=== PATIENT | male | born 1955 | race Caucasian/White ===

== ENCOUNTER 2020-08-17 14:32 | Inpatient (IN) | payer MEDICARE, OTHER ==
[~2020-08-17] VITALS: Ht 182.9 cm; Wt 63.0 kg
[2020-08-17] MEDS ORDERED: IV NS 0.9% 1,000 ML BAG IV ONE (15:00)
[2020-08-17 15:43] LABS: BASOPHILS % (AUTO) 0.4 % (0.0-2.0); EOSINOPHILS % (AUTO) 0.1 % (0.0-6.0); HEMATOCRIT 36 % (39-51); HEMOGLOBIN 11.6 g/dL (13.5-17.5); LYMPHOCYTES # (AUTO) 0.5 /CMM (0.8-4.8); LYMPHOCYTES % (AUTO) 5.6 % (20.0-44.0); MEAN CORPUSCULAR HGB CONC 33 g/dl (31.0-36.0); MEAN CORPUSCULAR VOLUME 87 fL (80-96); MONOCYTES # (AUTO) 0.6 /CMM (0.1-1.30); NEUTROPHILS # (AUTO) 8.1 /CMM (1.8-8.9); NEUTROPHILS % (AUTO) 86.9 % (43.0-81.0); PLATELET COUNT (AUTO) 186 /CMM (150-450); RED BLOOD CELL COUNT(AUTO) 4.11 MIL/uL (4.5-6.0); WHITE BLOOD COUNT (AUTO) 9.3 K/uL (4.3-11.0)
--- NOTE | 2020-08-17 15:54 | NUR ---
Pt has states "lives in a car was kicked out of board and care. Homeless protocol initiated
[2020-08-17 15:56] LABS: CALCIUM, SERUM 8.8 mg/dL (8.5-10.1); CREATININE 1.6 mg/dL (0.6-1.3); POTASSIUM 3.5 mmol/L (3.5-5.1)
[2020-08-17 16:09] LABS: ALBUMIN 3.3 g/dL (3.4-5.0); BILIRUBIN,TOTAL 0.6 mg/dL (0.2-1.0); TOTAL PROTEIN, SERUM 7.8 g/dL (6.4-8.2)
[2020-08-17] MEDS ORDERED: LOPERAMIDE HCL (2 MG CAP) 2 MG CAPSULE ONE (16:27)
[2020-08-17] MEDS ORDERED: ASPIRIN 325 MG TABLET ONE (16:27)
[2020-08-17] MEDS ORDERED: LOPERAMIDE HCL (2 MG CAP) 2 MG CAPSULE PO ONE (16:30)
[2020-08-17] MEDS ORDERED: ASPIRIN 325 MG TABLET PO ONE (16:30)
[2020-08-17 16:36] LABS: BILIRUBIN,URINE Negative (NEGATIVE); BLOOD, URINE Trace-lysed Ery/uL (NEGATIVE); COLOR,URINE YELLOW (YELLOW); LEUKOCYTE ESTERASE ,URINE Negative (NEGATIVE); NITRITE, URINE Negative (NEGATIVE); PH,URINE 8.5 (5.0-8.0); PROTEIN,URINE 30 mg/dl (NEGATIVE); UGLUCOSE Negative (NEGATIVE); UROBILINOGEN,URINE 0.2 EU/dL (0.2)
[2020-08-17] MEDS ORDERED: OXYC40TA50 PO (16:42)
[2020-08-17] MEDS ORDERED: HYDR-3980 PO (16:42)
[2020-08-17] MEDS ORDERED: LISI10TA5 PO (16:42)
[2020-08-17] MEDS ORDERED: CLON2TAB11 PO (16:42)
[2020-08-17 16:53] LABS: BACTERIA,URINE Rare /HPF (None Seen); SQUAMOUS EPITHELIAL CELL,UR Few /HPF (None Seen); WBC,URINE NONE SEEN /HPF (0-3)
--- NOTE | 2020-08-17 17:15 | NUR ---
Abdle to get out of bed- BRP +diarrhea
[2020-08-17] MEDS ORDERED: ACETAMINOPHEN 325 MG TABLET PO PRN (18:00)
[2020-08-17] MEDS ORDERED: ALBUTEROL SULFATE 8 GM HFA.AER.AD IH PRN (18:00)
--- NOTE | 2020-08-17 18:09 | NUR ---
Pt gets easily frustrated and agitated " I keep going to the bathroom Im going to shit on myself" declines to be undressed states "its so cold I dont want to" .
--- NOTE | 2020-08-17 18:51 | NUR ---
REPORT RECEIVED FROM JANA POP FOR CARMENZA
[2020-08-17] MEDS ORDERED: LORAZEPAM INJ 2 MG/ML VIAL ONE (19:09)
[2020-08-17] MEDS ORDERED: LORAZEPAM INJ 2 MG/ML VIAL IV ONE (19:30)
--- NOTE | 2020-08-17 19:50 | NUR ---
TELE 107
--- NOTE | 2020-08-17 19:58 | NUR ---
REPORT GIVEN TO JANA SENIOR FOR CARMENZA
--- NOTE | 2020-08-17 20:45 | NUR ---
"RN NOTE | ADMISSION RECEIVED PT FROM ER VIA [facility] ACCOMPANIED BY 2 ER STAFFS AND TRANSFERRED TO BED VIA 2 PERSON ASSIST. PT IS ALERT AND ORIENTED X4. PT ON 2L OF O2 VIA NC WITH RESPIRATIONS EVEN AND UNLABORED. COMPREHENSIVE PHYSICAL ASSESSMENT AND PATIENT CARE DONE. CALL LIGHT WITHIN REACH, SAFETY MEASURES AND ISOLATION PRECAUTION IN PLACE, WILL CONTINUE MONITOR AND ASSESS THROUGHOUT THE SHIFT. WILL CARRY OUT MD ORDERS ACCORDINGLY."
[2020-08-17] MEDS: IV NS 0.9% 1,000 ML IV PRN (20:54)
--- NOTE | 2020-08-17 20:59 | NUR ---
PT TRANSFERRED PER [facility]S PR[employer]
[2020-08-17] MEDS ORDERED: CEFEPIME 1 GM in IV D5W 50 ML IV SCH (21:00)
--- NOTE | 2020-08-17 22:00 | NUR ---
RN NOTES PATIENT REMAINS IN NO ACUTE RESPIRATORY DISTRESS AT THIS TIME, NO CHANGES TO CONDITION/STATUS. DIETITIAN THERAPEUTIC WELL AWARE. WILL CONTINUE TO MONITOR AND REASSESS FOR ANY CHANGES THROUGHOUT THE SHIFT
[2020-08-17 22:20] VITALS: BP 138/75
[2020-08-17] MEDS: HEPARIN SODIUM, PORCINE 5000 UNITS/1 ML VIAL SQ SCH (22:28)
[2020-08-17] MEDS: CEFEPIME 2 GM in IV D5W 100 ML IV SCH (22:28)
[2020-08-17] MEDS: ONDANSETRON HCL/PF 4 MG/2 ML VIAL IVP PRN (23:13)
[2020-08-18] VITALS: BP 118/71
--- NOTE | 2020-08-18 02:00 | NUR ---
RN NOTES NO CHANGE IN PATIENT CONDITION AT THIS TIME PATIENT VITALS STABLE, NO SIGNS OF ACUTE RESPIRATORY DISTRESS. LACE TEARING SUPERVISOR MADE AWARE. WILL CONTINUE TO MONITOR AND REASSESS FOR ANY CHANGES THROUGHOUT THE SHIFT.
[2020-08-18 04:00] VITALS: BP 140/76
[2020-08-18] MEDS: IV NS 0.9% 1,000 ML IV PRN ×2 (05:27→14:05)
--- NOTE | 2020-08-18 06:41 | NUR ---
RN CLOSING NOTE: PATIENT REMAINS IN ROOM. NO SIGNS OF RESPIRATORY DISTRESS. SAFETY MEASURES IMPLEMENTED, BED IN LOWEST POSITION, LOCKED, SIDE RAILS UP, CALL LIGHT WITHIN REACH. ALL NEEDS AND ORDERS ADDRESSED DURING THE SHIFT. ALL DUE MEDS GIVEN ORDERED & SCHEDULED ; PATIENT TOLERATED WELL.PATIENT KEPT CLEAN AND COMFORTABLE WITHIN THE SHIFT. ENDORSED TO INCOMING SHIFT RN FOR CONTINUITY OF CARE.
--- NOTE | 2020-08-18 07:05 | NUR ---
PT AWAKE AND ALERT X4. HOB ELEVATED 30 DEGREES. 2L/MIN NC ON W NO SOB OR DISTRESS. 6/10 PAIN REPORTED IN BACK. SR 80S ON TELE. AMBULATED TO BATHROOM W ASSISTANCE. GAIT STEADY. R FA FLUSHED AND INTACT. REPORTS MILD NAUSEA. WILL MONITOR PAIN AND NAUSEA AND RESPIRATIONS AND O2 THROUGHOUT SHIFT. WILL REPORT TO MD NEEDED AND IMPLEMENT ORDERS. ALL HOSPITAL POLICY SAFETY PRECAUTIONS IMPLEMENTED. RAILS X2 UP, BED LOCKED, LOCK, NON SLIP SOCKS ON, CALL LIGHT IN REACH.
[2020-08-18 07:16] LABS: BASOPHILS % (AUTO) 0.3 % (0.0-2.0); EOSINOPHILS % (AUTO) 0.2 % (0.0-6.0); HEMATOCRIT 35 % (39-51); HEMOGLOBIN 11.4 g/dL (13.5-17.5); LYMPHOCYTES # (AUTO) 0.5 /CMM (0.8-4.8); LYMPHOCYTES % (AUTO) 6.6 % (20.0-44.0); MEAN CORPUSCULAR HGB CONC 33 g/dl (31.0-36.0); MEAN CORPUSCULAR VOLUME 86 fL (80-96); MONOCYTES # (AUTO) 0.6 /CMM (0.1-1.30); MONOCYTES % (AUTO) 7.9 % (2.0-12.0); NEUTROPHILS # (AUTO) 6.1 /CMM (1.8-8.9); PLATELET COUNT (AUTO) 142 /CMM (150-450); RED BLOOD CELL COUNT(AUTO) 4.02 MIL/uL (4.5-6.0); WHITE BLOOD COUNT (AUTO) 7.2 K/uL (4.3-11.0)
[2020-08-18 07:55] LABS: ALBUMIN 2.8 g/dL (3.4-5.0); BILIRUBIN,TOTAL 0.6 mg/dL (0.2-1.0); CALCIUM, SERUM 8.4 mg/dL (8.5-10.1); CREATININE 1.1 mg/dL (0.6-1.3); POTASSIUM 3.8 mmol/L (3.5-5.1); TOTAL PROTEIN, SERUM 6.8 g/dL (6.4-8.2)
[2020-08-18 08:00] VITALS: BP 128/72
[2020-08-18] MEDS ORDERED: clonazePAM 2 MG TABLET PO SCH (09:00)
[2020-08-18] MEDS: ONDANSETRON HCL/PF 4 MG/2 ML VIAL IVP PRN (09:31)
[2020-08-18] MEDS: HEPARIN SODIUM, PORCINE 5000 UNITS/1 ML VIAL SQ SCH ×2 (09:31→21:27)
[2020-08-18] MEDS: DOXYCYCLINE HYCLATE (100 MG) 100 MG TABLET PO SCH ×2 (09:32→16:18)
[2020-08-18] MEDS: clonazePAM 1 MG TABLET PO SCH (09:32)
[2020-08-18] MEDS: oxyCODONE HCL SR 20MG TAB.SR.12H PO SCH ×2 (09:32→21:22)
[2020-08-18] MEDS: CEFEPIME 2 GM in IV D5W 100 ML IV SCH ×2 (09:34→21:22)
[2020-08-18] MEDS: DEXAMETHASONE SOD PHOSPHATE 10 MG/ML VIAL IV SCH (10:47)
[2020-08-18] MEDS: ALBUTEROL SULFATE 8 GM HFA.AER.AD IH SCH ×4 (10:48→21:49)
--- NOTE | 2020-08-18 11:48 | NUR ---
Cash Applications Clerk consult requested by MORA Ambrosio for homelessness. Patient reported that the patient was living at [facility] ([place] at [address], [place] [address]) and patient reported that staff kicked the patient out of this location and patient began to live in his car. Patient believes that staff kicked him out of the facility because of COVID and patient reports to this SW no symptoms. Patient and SW began to explore homeless community resources and patient stated "My phone is , I need you to call [facility] because I have a sample case porter there. They will help me." SW informed the patient that this SW would follow-up with [facility] per patient's request. Patient became agitated and SW affirmed the patient and his needs regarding placement. SW asked patient if he would like for this SW to return after calling [facility] and patient agreed. Plan: SW will return to complete assessment and will follow-up with [facility] per patient's request.
--- NOTE | 2020-08-18 11:59 | NUR ---
This SW contacted [facility] per patient's request. At this time, a field marketing representative was unavailable. SW to follow-up again with [facility]. SW remains available for all needs regarding this patient.
[2020-08-18 12:00] VITALS: BP 136/75
[2020-08-18] MEDS ORDERED: ALBUTEROL SULFATE 8 GM HFA.AER.AD IH SCH (13:00)
[2020-08-18 14:29] LABS: THYROID STIMULATING HORMONE 0.768 uIU/mL (0.358-3.74)
[2020-08-18 16:00] VITALS: BP 131/78
[2020-08-18] MEDS: ALPRAZOLAM 0.25 MG TABLET PO PRN (16:18)
--- NOTE | 2020-08-18 19:10 | NUR ---
RN OPENING NOTES: RECEIVED PT A/OX3-4 IN BED RESTING COMFORTABLY. PATIENT IN NO S/SX OF ACUTE DISTRESS AT THIS TIME. NO SOB NOTED. PATIENT'S BREATHING IS EVEN AND UNLABORED. PATIENT IS ON 2L OF OXYGEN VIA NC; TOLERATING WELL. PATIENT ON TELE MONITORING READING SINUS FRANKO HR IS @50s AT THE TIME OF RECEIVED.NOTED IV SITE ON R FA # 18;PATENT, INTACT AND FLUSHING WELL; NO S/S OF INFECTION OR INFILTRATION. WITH IV FLUID RUNNING ORDERED. PT ON REGULAR DIET. PT IS AMBULATORY; WITH URINAL @BEDSIDE. SAFETY MEASURES HAVE BEEN PROVIDED AND IMPLEMENTED. PATIENT BED ALARM IS ON. HEAD OF BED ELEVATED. BED IS LOCKED, IN LOWEST POSITION AND SIDE RAILS UP. CALL LIGHT WITHIN REACH OF THE PATIENT. APPLICABLE ISOLATION PRECAUTIONS IN PLACE. WILL CONTINUE TO MONITOR AND REASSESS FOR ANY CHANGES AND WILL CARRY OUT ANY ONGOING AND ACTIVE MD ORDER.
--- NOTE | 2020-08-18 19:49 | NUR ---
PT AWAKE AND ALERT X4. HOB ELEVATED 30 DEGREES. 2L/MIN NC ON W NO SOB OR DISTRESS. 6/10 PAIN REPORTED IN BACK. SR50S ON TELE. EMAIL MARKETING INTERN AWARE AND NO ORDER CHANGES. MONITORED CLOSELY THROUGHOUT SHIFT. AMBULATED TO BATHROOM W ASSISTANCE. GAIT STEADY. R FA FLUSHED AND INTACT. REPORTS MILD NAUSEA THAT IMPROVES W THE ORDERED ZOFRAN. MONITORED PAIN AND NAUSEA AND RESPIRATIONS AND O2 THROUGHOUT SHIFT. REPORTED TO MD NEEDED AND IMPLEMENTED ORDERS. ALL HOSPITAL POLICY SAFETY PRECAUTIONS IMPLEMENTED. RAILS X2 UP, BED LOCKED, LOCK, NON SLIP SOCKS ON, CALL LIGHT IN REACH. ENDORSED TO PM RN.
[2020-08-18 20:00] VITALS: BP 135/83
--- NOTE | 2020-08-18 22:00 | NUR ---
RN NOTES PATIENT REMAINS IN NO ACUTE RESPIRATORY DISTRESS AT THIS TIME, NO CHANGES TO CONDITION/STATUS. FLOOR PRESS OPERATOR WELL AWARE. WILL CONTINUE TO MONITOR AND REASSESS FOR ANY CHANGES THROUGHOUT THE SHIFT
[2020-08-18] MEDS: MIRTAZAPINE 15 MG TABLET PO SCH (22:08)
[2020-08-19] VITALS: BP 126/80
[2020-08-19] MEDS: IV NS 0.9% 1,000 ML IV PRN (00:56)
[2020-08-19] MEDS: ALBUTEROL SULFATE 8 GM HFA.AER.AD IH SCH ×6 (01:05→20:32)
--- NOTE | 2020-08-19 03:32 | NUR ---
RN MOI HALL FROM LABORATORY CALLED TO RELAY NEGATIVE RESULT FOR COVID PCR. NADEEN, PRIMARY RN AND SINDHU, HEALTH ADVOCATE NOTIFIED
[2020-08-19 04:00] VITALS: BP 127/76
--- NOTE | 2020-08-19 04:00 | NUR ---
RN NOTES NO CHANGE IN PATIENT CONDITION AT THIS TIME PATIENT VITALS STABLE, NO SIGNS OF ACUTE RESPIRATORY DISTRESS. ENTRY ENGINEER MADE AWARE. WILL CONTINUE TO MONITOR AND REASSESS FOR ANY CHANGES THROUGHOUT THE SHIFT.
--- NOTE | 2020-08-19 07:40 | NUR ---
PT RECEIVED IN BED, ALERT AND ORIENTED X 4. PT REPORTED ON 2L O2, FOUND WITH 4L NASAL CANNULA. TITRATED DOWN TO 3L WILL ASSESS O2 SATURATIONS. PT ON MONITOR SHOWING SB/SR. PT IS AMBULATORY TO BATHROOM WITH ASSIST. PT WITH BILATERAL LEG SCABS AND LEFT ARM SCABS. PT REGULAR DIET. PT REQUESTS TO FOLLOW UP WITH LIQUID LOADER REGARDING PLACEMENT. PT RFA #18 RUNNING NS AT 125 ML/HR. PT REPORTS PAIN ON IV SITE, APPEARS SWOLLEN AND INFILTRATED. IV PAUSED. WILL REINSERT NEW IV. BED IN LOCKED LOWEST POSITION, CALL LIGHT WITHIN REACH, ALL SAFETY MEASURES IN PLACE, WILL CONTINUE TO MONITOR CLOSELY.
[2020-08-19 08:00] VITALS: BP 138/84
[2020-08-19 08:42] LABS: ALBUMIN 2.7 g/dL (3.4-5.0); BILIRUBIN,TOTAL 0.3 mg/dL (0.2-1.0); CALCIUM, SERUM 8.4 mg/dL (8.5-10.1); CREATININE 1.2 mg/dL (0.6-1.3); MAGNESIUM 2.1 mg/dL (1.8-2.4); PHOSPHORUS 2.9 mg/dL (2.5-4.9)
[2020-08-19 09:12] LABS: BASOPHILS % (AUTO) 0.2 % (0.0-2.0); HEMATOCRIT 35 % (39-51); HEMOGLOBIN 11.4 g/dL (13.5-17.5); LYMPHOCYTES # (AUTO) 0.8 /CMM (0.8-4.8); LYMPHOCYTES % (AUTO) 6.6 % (20.0-44.0); MEAN CORPUSCULAR HGB CONC 33 g/dl (31.0-36.0); MEAN CORPUSCULAR VOLUME 87 fL (80-96); MONOCYTES % (AUTO) 8.3 % (2.0-12.0); NEUTROPHILS # (AUTO) 9.7 /CMM (1.8-8.9); NEUTROPHILS % (AUTO) 84.9 % (43.0-81.0); PLATELET COUNT (AUTO) 177 /CMM (150-450); RED BLOOD CELL COUNT(AUTO) 4.03 MIL/uL (4.5-6.0); WHITE BLOOD COUNT (AUTO) 11.5 K/uL (4.3-11.0)
[2020-08-19] MEDS: DOXYCYCLINE HYCLATE (100 MG) 100 MG TABLET PO SCH ×2 (09:20→17:58)
[2020-08-19] MEDS: clonazePAM 1 MG TABLET PO SCH (09:21)
[2020-08-19] MEDS: DEXAMETHASONE SOD PHOSPHATE 10 MG/ML VIAL IV SCH (09:21)
[2020-08-19] MEDS: CEFEPIME 2 GM in IV D5W 100 ML IV SCH ×2 (09:25→21:17)
[2020-08-19] MEDS: oxyCODONE HCL SR 20MG TAB.SR.12H PO SCH ×2 (09:53→20:32)
[2020-08-19] MEDS: HEPARIN SODIUM, PORCINE 5000 UNITS/1 ML VIAL SQ SCH ×2 (10:53→20:33)
--- NOTE | 2020-08-19 11:00 | NUR ---
PT O2 TITRATED FROM 4L TO 2L, NO RESPIRATORY DISTRESS OR SOB
[2020-08-19 12:00] VITALS: BP 134/89
--- NOTE | 2020-08-19 13:00 | NUR ---
PT NOW ON RA, O2 SATURATION 95%
[2020-08-19 16:00] VITALS: BP 142/77
[2020-08-19] MEDS: ALPRAZOLAM 0.25 MG TABLET PO PRN (18:10)
--- NOTE | 2020-08-19 18:42 | NUR ---
PT O2 SAT 85%, OXYGEN TITRATED TO 4L CURRENTLY 92% SAT
--- NOTE | 2020-08-19 19:15 | NUR ---
RN NOTE RECEIVED PT IN BED AWAKE AND ALERT/ORIENTED X 4. PT ON 4L OF O2 VIA NC. RESPIRATIONS EVEN AND UNLABORED, WITH COMPLAINT OF MODERATE GENERALIZED BODY PAIN, WILL ADMINISTER ROUTINE OXYCONTIN. IV SITE FLUSHED AND PATENT WITHOUT COMPLICATIONS NOTED A SITE, SR ON THE TELE MONITOR, NOTED TO STILL BE IN STREET CLOTHES, OFFERED PT GOWN BUT PT REFUSED, PLAN OF CARE DISCUSSED, CALL LIGHT WITHIN REACH, SAFETY MEASURES IN PLACE, BED ALARM ON, BED LOCKED AND IN LOW POSITION, SIDE RAILS UP X 2, URINAL AT BEDSIDE REACHABLE, WILL MONITOR PATIENT.
--- NOTE | 2020-08-19 19:20 | NUR ---
PT REMAINS IN BED, ALERT AND ORIENTED X 4. PT ON 4L NASAL CANNULA, O2 SATS 92%. NO RESPIRATORY DISTRESS. PT ANXIOUS WHEN TAKING PM DOSE OF ALBUTEROL, XANAX GIVEN THIS SHIFT. PT LFA #20 IS SALINE LOCKED. PT REPORTS PAIN WHEN FLUSHING; NO RESISTANCE FLUSHING AND ENDORSED TO ONCOMING RN. PT STATES APPETITE TODAY IS POOR. PT IN BED LOCKED LOWEST POSITION, CALL LIGHT WITHIN REACH, ALL SAFETY MEASURES IN PLACE. REPORT GIVEN TO ZULMA FOR CARMENZA.
--- NOTE | 2020-08-19 19:40 | NUR ---
RN NOTE PT REFUSED TO HAVE SCD PUMPS PLACED DESPITE EXPLANATION OF RISKS AND ADVANTAGES.
[2020-08-19 20:00] VITALS: BP 146/85
[2020-08-19] MEDS: MIRTAZAPINE 15 MG TABLET PO SCH (21:21)
[2020-08-19] MEDS: LORAZEPAM INJ 2 MG/ML VIAL IV PRN (23:40)
--- NOTE | 2020-08-19 23:45 | NUR ---
RN NOTE PT WOKE UP HAVING SEVERE ANXIETY AND YELLED STATING "I CANNOT BREATHE". PLACED PT ON FACEMASK 8L AND REPOSITIONED PT TO HIGH MCCOY'S POSITION, O2 SATURATION 83%. PLACED PT ON NON REBREATHER 15L WITH O2 SATURATION INCREASING TO 92%. DR. BONILLA NOTIFIED WITH ORDER TO GIVE ATIVAN 1MG IV Q6H PRN FOR ANXIETY, 1ST DOSE ADMINISTERED EFFECTIVE WITH PT STATING THAT HE FEELS RELIEF. REMOVED NON REBREATHER MASK AND PLACED PT BACK ON 8L FACEMASK. O2 SATURATION BETWEEN 88-90%. NOTED WITH HISTORY OF COPD. PT NOW CALM AND TALKED ABOUT HIS PAST AND CHILDHOOD. REMOVED FACEMASK AND PLACED PT ON 4L NASAL CANNULA. O2 SATURATION STILL 88-90%. RESPIRATIONS STILL SHALLOW BUT EVEN, PT REQUESTED TO REMOVE NASAL CANNULA AND BE PUT ON THE FACEMASK AGAIN HE FEELS MORE COMFORTABLE AND THAT IT LOWERS HIS ANXIETY.
[2020-08-20] VITALS (9 sets, daily range): BP systolic 101–152; BP diastolic 62–94
--- NOTE | 2020-08-20 00:45 | NUR ---
RN NOTE REMOVED FACEMASK FROM PT. STATES BEING ABLE TO BREATHE EASY NOW WHILE ON ROOM AIR. O2 SAT 92%. WILL CONTINUE TO MONITOR.
--- NOTE | 2020-08-20 01:00 | NUR ---
RN NOTE PT SLEEPING IN BED COMFORTABLY WITHOUT SIGNS OF PAIN, DISCOMFORT, OR DISTRESS. ON ROOM AIR.
[2020-08-20] MEDS: ALBUTEROL SULFATE 8 GM HFA.AER.AD IH SCH ×6 (01:14→23:38)
[2020-08-20] MEDS: ALPRAZOLAM 0.25 MG TABLET PO PRN (02:11)
[2020-08-20] MEDS: LORAZEPAM INJ 2 MG/ML VIAL IV PRN ×3 (05:39→16:42)
--- NOTE | 2020-08-20 06:12 | NUR ---
RN NOTE PT REFUSED PARTIAL BED BATH. ALSO REFUSED TO CHANGE INTO PT GOWN BUT ALLOWED FOR PARTIAL LINEN CHANGE.
--- NOTE | 2020-08-20 06:56 | NUR ---
RN NOTE PT SLEEPING IN BED IN HIGH MCCOY'S POSITION. RESPIRATIONS EVEN AND UNLABORED WHILE ON ROOM AIR, NO SIGNS OF PAIN OR DISCOMFORT AT THIS TIME, IV SITE PATENT WITHOUT COMPLICATIONS NOTED A SITE, SR ON THE TELE MONITOR, CALL LIGHT WITHIN REACH, SAFETY MEASURES IN PLACE, BED ALARM ON, BED LOCKED AND IN LOW POSITION, SIDE RAILS UP X 2, URINAL AT BEDSIDE REACHABLE, WILL ENDORSE TO MORNING RN FOR CARMENZA.
--- NOTE | 2020-08-20 07:50 | NUR ---
patient having SOB pulse ox 88% hx of COPD Dr James was notified re; patient condition HHN TX ordered and abg ordered
[2020-08-20 07:56] LABS: ABG PCO2 29.3 mmHg (35.0-45.0); ABG PH 7.277 (7.350-7.450); ABG PO2 55.3 mmHg (75.0-100.0); AaDO2 484.3 mmHg; COHb 0.8 % (0.5-1.5); MetHb 0.1 % (0.0-1.5); O2Hb 85.2 % (94.0-97.0); SITE, ABG Right Radial; VENT MODE, BG NRB
[2020-08-20] MEDS ORDERED: ALBUTEROL FS 2.5 MG/3 ML VIAL.NEB NEB PRN (08:00)
--- NOTE | 2020-08-20 08:00 | NUR ---
patient looks much better now ABG results notified to Dr.Noel MENCHACA TX will give now dose by resp therapist call light with in reach
--- NOTE | 2020-08-20 08:00 | NUR ---
ANTI AIR WARFARE OPERATIONS OFFICER NOTE PATIENT IN BED VERY ANXIOUS C\O CANT BREATH AT THIS TIME , ON SIMPLE MASK 8L BUT TRY TO REMOVED , SATURATION 76% AT THIS TIME , PLACED NONREBREATHER MASK 15L AND CALLED RT , DR JAEGER NOTIFIED OK TO DO ABG , ON TELE MONITOR ST HR 120 HL, LT HL FA IS NOT WORKING WELL BED IN LOWEST AND LOCKED POSITION, ALSO NOTED PATIENT IS COUGHING BLOOD, MIL RN TIN FLOPPER NOTIFIED STATED THAT BECAUSE HE HAS PNA B WILL MONITOR
--- NOTE | 2020-08-20 08:15 | NUR ---
SBA UNDERWRITER NOTE MIL RN MANAGER TECHNICAL SERVICES AT BEDSIDE OK TO GIVE ATIVAN 1MG IVP AT THIS TIME, AWARE OF RESULT OF AND BREATHING TX BY RT DONE ,WILL CONT TO MONITOR
[2020-08-20] MEDS: IPRATROPIUM NEB FS 0.5 MG/2.5 ML AMPUL.NEB NEB SCH ×5 (08:47→23:38)
[2020-08-20] MEDS ORDERED: predniSONE 20 MG TABLET PO SCH (09:00)
[2020-08-20] MEDS: ENSURE ENLIVE CHOC 237 ML CAN PO SCH ×2 (09:14→16:48)
[2020-08-20] MEDS: oxyCODONE HCL SR 20MG TAB.SR.12H PO SCH ×2 (09:24→20:44)
[2020-08-20] MEDS: clonazePAM 1 MG TABLET PO SCH (09:24)
[2020-08-20] MEDS: HEPARIN SODIUM, PORCINE 5000 UNITS/1 ML VIAL SQ SCH ×2 (09:25→20:47)
[2020-08-20] MEDS: DOXYCYCLINE HYCLATE (100 MG) 100 MG TABLET PO SCH ×2 (09:27→16:45)
[2020-08-20] MEDS: CEFEPIME 2 GM in IV D5W 100 ML IV SCH ×2 (10:05→23:10)
[2020-08-20 10:07] LABS: PTH, INTACT 30 pg/mL (15-65)
--- NOTE | 2020-08-20 10:48 | NUR ---
CHEF ASSISTANT NOTE C\P CANT BREATH RT AT BEDSIDE ON BREATHING TX
--- NOTE | 2020-08-20 12:00 | NUR ---
PATIENT'S LIBRARIAN NOTE UNABLE TO URINATE WELL MUNOZ CATH INSERTED PER ORDER MIL VELAZCO ALSO NOTIFIED THAT AT RISK FOR RESPIRATORY DISTRESS ORDERED JOCELYN WHITTINGTON WAS D\C ALSO AWARE THAT STILL ON NONREBREATHER MASK SATURATION 88-90% AND ST 144 STILL WITH LABORED RESPIRATION ,LASIX 20 MG IVP GIVEN PER NET DEVELOPER SOFTWARE ENGINEER C ORDER ABATING FOR CHEST X RAY Addendum: 08/20/20 at 1501 by OLI TROTTER RN called to chest x ray spoke with trach will come as soon they have time will f\u
--- NOTE | 2020-08-20 12:15 | NUR ---
ELECTRICAL AND INSTRUMENT MECHANIC NOTE STILL WITH LABORED RESPIRATION , AND SEVERE CHEST CONGESTION MIL DNP NOTIFIED STATED MONITOR CLOSELY
[2020-08-20] MEDS ORDERED: FUROSEMIDE 20 MG/2 ML VIAL IV ONE (12:30)
--- NOTE | 2020-08-20 15:00 | NUR ---
television service engineer note still with labored respiration on 15 l nonbreather mask ,saturation 90%
--- NOTE | 2020-08-20 15:46 | NUR ---
PERIOPERATIVE NURSE NOTE PER DNP NOTIFIED THAT PATIENT STILL WITH LABORED RESPIRATION AND SEVERE CHEST CONGESTION ,MIL DNP OK TO TRANSFER TO ICU AND PLACE BIPAP, BERNADINE F\U
--- NOTE | 2020-08-20 16:50 | NUR ---
regional telecommunications specialist note Ativan 1 mg ivp given on bypap now and unable to have inhaler on bypap machine
[2020-08-20] MEDS ORDERED: QUETIAPINE FUMARATE 25 MG TABLET PO SCH (17:00)
--- NOTE | 2020-08-20 17:07 | NUR ---
relay telegrapher note chest ray done on bipap as ordered saturation 90%
--- NOTE | 2020-08-20 18:18 | NUR ---
telecommunicator note still refusing to place bipap removed but explained that benefits of biapap, placed back dr montiel notified
--- NOTE | 2020-08-20 19:00 | NUR ---
BUSINESS PLANNER NOTE BIPAP PLACED BACK [id number] WILL MONITOR
--- NOTE | 2020-08-20 19:17 | NUR ---
teletypewriter operator note endorsed CARE TO WIDE AREA NETWORK ADMINISTRATOR RN
--- NOTE | 2020-08-20 19:25 | NUR ---
1924 REPORT RECEIVED FROM JANA TROTTER WITH QUESTIONS ANSWERED.
--- NOTE | 2020-08-20 19:30 | NUR ---
0 RECEIVED PATIENT IN BED, RESTLESS AND REMOVING HIS BIBAP MASK. NOTED TO BE SHORT OF BREATH WITH SATURATION IN THE LOW 80S. PLACED MASK BACK ON AND REMINDED PATIENT THE RISKS OF REMOVING MASK AND PATIENT VERBALIZED UNDERSTANDING. RT AT BEDSIDE TO PUT NEW MASK ON. PATIENT IS VERBALLY RESPONSIVE BUT GETS VERY SHORT OF BREATH WHEN SPEAKING. HOB ELEVATED FOR MAXIMUM OXYGENATION. RAILS UP FOR SAFETY. CALL LIGHT WITHIN REACH.
--- NOTE | 2020-08-20 20:00 | NUR ---
2000 [place] INSERTED ON LFA. ATTEMPTED ONCE WITH GOOD BLOOD RETURN.
--- NOTE | 2020-08-20 21:00 | NUR ---
2100 SLEEPING ON HIS LEFT SIDE. NO SIGNS OF RESPIRATORY DISTRESS NOTED. O2 SATURATION 96%. STILL WITH EPISODES OF REMOVING BIPAP MASK CAUSING HIM TO BE SHORT OF BREATH. CONT. TO REMIND HIM TO KEEP MASK ON. NO CHANGES IN NEURO STATUS NOTED. HOB KEPT ELEVATED FOR MAX OXYGENATION.
--- NOTE | 2020-08-20 21:45 | NUR ---
2145 REMERON 15 MG GIVEN ORDERED. PATIENT ABLE TO TOLERATE PO MEDICATIONS WITH SIPS OF WATER. NO SIGNS OF ASPIRATION NOTED. HOB KEPT ELEVATED FOR ASPIRATION AND MAX OXYGENATION.
[2020-08-20] MEDS ORDERED: CEFEPIME 1 GM VIAL ONE (22:24)
[2020-08-20] MEDS ORDERED: AZITHROMYCIN 500 MG VIAL ONE (22:24)
[2020-08-21] VITALS (11 sets, daily range): BP systolic 101–130; BP diastolic 71–85
--- NOTE | 2020-08-21 00:15 | NUR ---
0015 PATIENT SLEEPING ON HIS SIDE, EASILY AROUSABLE. ABLE TO MAINTAIN O2 SAT IN THE HIGH 90S. STILL WITH EPISODES OF REMOVING BIPAP MASK. CONT. TO REITERATE THE IMPORTANCE OF LEAVING MASK ON. PATIENT VERBALIZES UNDERSTANDING. ABLE TO TURN SELF TO SIDE INDEPENDENTLY. ABLE TO TOLERATE SIPS OF WATER. HOB KEPT ELEVATED FOR MAX OXYGENATION AND ASPIRATION PRECAUTIONS. KEPT PATIENT COMFORTABLE. ALL NEEDS ANTICIPATED.
--- NOTE | 2020-08-21 01:20 | NUR ---
0120 DR. BONILLA MADE AWARE THAT PATIENT'S VENTOLIN PUFF NOT AVAILABLE. ORDER CHANGED TO ALBUTEROL NEBULIZER EVERY 4 HOURS ROUND THE CLOCK. ORDER NOTED, RT SÁNCHEZ MADE AWARE.
[2020-08-21] MEDS ORDERED: ALBUTEROL FS 2.5 MG/0.5 ML VIAL.NEB NEB SCH (01:30)
--- NOTE | 2020-08-21 03:00 | NUR ---
0300 CONT TO TOLERATE CURRENT BIPAP SETTINGS. O2 MAINTAINED IN THE HIGH 90S. PATIENT MORE COOPERATIVE WITH CARE THIS TIME. HOB ELEVATED AT ALL TIMES. KEPT COMFORTABLE AND NEEDS ATTENDED.
--- NOTE | 2020-08-21 04:00 | NUR ---
0400 AM CARE RENDERED. LINENS CHANGED. LEFT ARM SCAB NOTED INTACT, LEFT OPEN TO AIR. LOWER LIP SCAB INTACT AND LEFT OPEN TO AIR. PATIENT ABLE TO ASSIST WITH BED BATH. NO RESPIRATORY DISTRESS NOTED. RT TITRATING DOWN FIO2 TOLERATED. PATIENT BEING CLOSELY MONITORED.
[2020-08-21] MEDS: IPRATROPIUM NEB FS 0.5 MG/2.5 ML AMPUL.NEB NEB SCH ×3 (04:04→11:12)
--- NOTE | 2020-08-21 05:30 | NUR ---
0530 patient getting agitated and asking to be taken off bipap machine. current o2 saturation 98% on 70% fio2. hob elevated for maximum oxygenation. rt Benja at bedside and put patient on non rebreather mask at 100%. o2 saturation holding at high 90s but drops quickly to low 90s when patient starts talking and getting anxious. encouraged patient to relax and take in deep breaths. hob kept elevated for max oxygenation. patient not in respiratory distress.
--- NOTE | 2020-08-21 06:30 | NUR ---
0630 CONTINUE TO TOLERATE NON REBREATHER MASK, O2 SATURATION 97%, NO SIGNS OF DISTRESS NOTED. CONT. TO REMIND PATIENT TO KEEP MASK ON AT ALL TIMES. DENIES PAIN WHEN ASKED. ABLE TO REPOSITION SELF INDEPENDENTLY. HOB KEPT ELEVATED FOR MAX OXYGENATION.
--- NOTE | 2020-08-21 07:15 | NUR ---
0715 REPORT GIVEN TO RN SOON FOR TRANSFER OF CARE WITH QUESTIONS ANSWERED.
[2020-08-21] MEDS: ALBUTEROL FS 2.5 MG/0.5 ML VIAL.NEB NEB SCH ×2 (07:36→11:12)
[2020-08-21 07:48] LABS: CALCIUM, SERUM 8.8 mg/dL (8.5-10.1); CREATININE 2.3 mg/dL (0.6-1.3); POTASSIUM 4.7 mmol/L (3.5-5.1)
--- NOTE | 2020-08-21 08:00 | NUR ---
patient received in bed with SOB NRB 100% wants to be DNR/DNI was noitfied and signed patient encouraged use of call light to make all needs known resp therapist at bed side seen by for exam pt patient iv infusing well with no signs of redness or swelling noted now converted to TEL status castaneda catheter draining well to gravity will continue to assess and evaluate
[2020-08-21] MEDS ORDERED: clonazePAM 0.5 MG TABLET PO PRN (08:30)
[2020-08-21] MEDS: DOXYCYCLINE HYCLATE (100 MG) 100 MG TABLET PO SCH (08:46)
[2020-08-21] MEDS: oxyCODONE HCL SR 20MG TAB.SR.12H PO SCH (08:46)
[2020-08-21] MEDS: LORAZEPAM INJ 2 MG/ML VIAL IV PRN (08:50)
--- NOTE | 2020-08-21 08:50 | NUR ---
c/o anxious medicated with ativan 1 mg ivp as ordered will continue to assess and evaluate
[2020-08-21] MEDS: HEPARIN SODIUM, PORCINE 5000 UNITS/1 ML VIAL SQ SCH (08:52)
[2020-08-21] MEDS: ENSURE ENLIVE CHOC 237 ML CAN PO SCH (08:52)
[2020-08-21] MEDS ORDERED: DIVALPROEX SODIUM 125 MG CAP.SPRINK PO SCH (09:00)
[2020-08-21] MEDS ORDERED: OLANZAPINE ZYDIS 5 MG TAB.RAPDIS PO SCH (09:00)
--- NOTE | 2020-08-21 09:42 | NUR ---
patient resting comfortable in bed and no distress noted will continue to assess and evaluate
[2020-08-21] MEDS: CEFEPIME 2 GM in IV D5W 100 ML IV SCH (10:32)
--- NOTE | 2020-08-21 12:08 | NUR ---
This SW followed up with patient's request for this SW to speak to a in home sales representative at [facility]. This SW spoke with Mary Alice . Mary Alice informed this SW that the patient is a client at [facility] however Mary Alice is not able to provide this SW manager photoclient relationship manager for this patient. Mary Alice informed this SW that Mary Alice will follow-up with patient's correct program to provide more information to this SW. Plan: RAVIN will follow-up with Mary Alice is no update is provided. SW remains available for all needs regarding this patient.
--- NOTE | 2020-08-21 14:00 | NUR ---
patient resting comfortable in bed getting little better at this time
--- NOTE | 2020-08-21 15:30 | NUR ---
patient found bradycardia 30-40
--- NOTE | 2020-08-21 15:50 | NUR ---
patient found unable to palpable pulses and pupils are flaxed ,telemetry shows no signs of reactions noted notified at this time
--- NOTE | 2020-08-21 16:00 | NUR ---
[employer] called in and case # [id number] notified family camille jackson emergency contact [phone] notified nursing supervisor small appliance assembly notified as well
--- NOTE | 2020-08-21 17:00 | NUR ---
POST Mortum given hep lock discontinued and castaneda catheter discontinued per protocol
--- NOTE | 2020-08-21 18:00 | NUR ---
body sent to [facility] fiberglass pipe covering supervisor notified
[2020-08-22 07:07] LABS: *SPE A/G RATIO 0.7 (0.7-1.7); *SPE ALBUMIN 2.8 g/dL (2.9-4.4); *SPE ALPHA-1-GLOBULIN 0.4 g/dL (0.0-0.4); *SPE ALPHA-2-GLOBULIN 0.9 g/dL (0.4-1.0); *SPE BETA GLOBULIN 0.9 g/dL (0.7-1.3); *SPE GLOBULIN, TOTAL 3.8 g/dL (2.2-3.9); *SPE M-SPIKE Not Observed g/dL (Not Observed); *SPEGAMMA GLOBULIN 1.6 g/dL (0.4-1.8)
--- NOTE | 2020-08-23 15:53 | NUR ---
RAVIN received a follow up call from Reshma Maddox from [facility] . This SW informed Reshma regarding primary purpose of this SW calling [facility] (placement per patient's request) and this SW informed Reshma that the patient had on 08/21. Reshma asked this SW to provide more information and RAVIN referred Reshma to nursing metal cans supervisor for more information regarding patient. SW remains available for all needs regarding this patient.
== END 2020-08-21 18:46 | disposition expired | DRG 177 ==
LOC: ER 14:37 → TELE1 19:59 → ICUOV 08-20 17:49 → TELE1 08-21 08:13
PROVIDERS: ADMIT Nurse Practitioner Acute Care; ATTEND Nurse Practitioner Acute Care
PROC: 5A09357 Assistance with Respiratory Ventilation, Less than 24 Consecutive Hours, Continuous Positive Airway Pressure (ICD-10-PCS; principal; 2020-08-20)
DX: J15.6 Pneumonia due to other Gram-negative bacteria (principal); J96.01 Acute respiratory failure with hypoxia; N17.0 Acute kidney failure with tubular necrosis; I21.A1 Myocardial infarction type 2; J44.1 Chronic obstructive pulmonary disease with (acute) exacerbation; E44.0 Moderate protein-calorie malnutrition; R64 Cachexia; Z68.1 Body mass index [BMI] 19.9 or less, adult; F31.89 Other bipolar disorder; J44.0 Chronic obstructive pulmonary disease with (acute) lower respiratory infection; J40 Bronchitis, not specified as acute or chronic; J15.9 Unspecified bacterial pneumonia; F17.210 Nicotine dependence, cigarettes, uncomplicated; E86.0 Dehydration; K52.9 Noninfective gastroenteritis and colitis, unspecified; I10 Essential (primary) hypertension; F41.9 Anxiety disorder, unspecified; D69.6 Thrombocytopenia, unspecified; F12.90 Cannabis use, unspecified, uncomplicated; F39 Unspecified mood [affective] disorder; G89.29 Other chronic pain; Z85.828 Personal history of other malignant neoplasm of skin; Z71.6 Tobacco abuse counseling; M48.00 Spinal stenosis, site unspecified; Z66 Do not resuscitate; M62.50 Muscle wasting and atrophy, not elsewhere classified, unspecified site
CPT/HCPCS: 36415; 36600; 71045-TC; 76770-TC; 80048-TC; 80053-TC; 80061-TC; 81001; 82550-TC; 82553; 82728-TC; 82803-TC; 83540-TC; 83735-TC; 83880; 83970; 84100-TC; 84155; 84165; 84439-TC; 84443-TC; 84484-TC; 85025-TC; 85378-TC; 86140-TC; 87081-TC; 93307-TC; 94799-TC; G0378; J0456; J0692; J1100; J1644; J1940; J2060; J2405; J3490; J7030; J7060; U0003